=== PATIENT | female | born 2000 | race Caucasian/White ===

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

== ENCOUNTER 2022-04-19 17:07 | Emergency (ER) | payer BC ==
[2022-04-19 17:12] VITALS: RESP 18; TEMP 98.9; BMI 18.8
[2022-04-19] MEDS ORDERED: DEXAMETHASONE SOD PHOSPHATE 10 MG/1 ML VIAL IM ONE (17:22)
[2022-04-19] MEDS ORDERED: diphenhydrAMINE HCL 25 MG CAPSULE (FP) PO ONE ×3 (17:22→17:27)
[2022-04-19] MEDS ORDERED: DEXAMETHASONE 4 MG TABLET (FP) PO ONE (17:26)
[2022-04-19] MEDS ORDERED: DEXAMETHASONE 4 MG TABLET (FP) ONE (17:27)
[2022-04-19] MEDS ORDERED: FAMOTIDINE 10 MG TABLET PO ONE (18:51)
[2022-04-19] MEDS ORDERED: FAMOTIDINE 20 MG TABLET ONE (18:53)
[2022-04-19 19:01] VITALS: BP 105/70; PULSE 90
== END 2022-04-19 19:59 | disposition home or self-care (01) ==
LOC: FER 17:07
PROC: 3E023NZ Introduction of Analgesics, Hypnotics, Sedatives into Muscle, Percutaneous Approach (ICD-10-PCS; principal; 2022-04-19)
DX: T78.40XA Allergy, unspecified, initial encounter (principal)
CPT/HCPCS: 99283-25

== ENCOUNTER 2022-09-10 20:09 | Emergency (ER) | payer BC ==
[2022-09-10 20:17] VITALS: BP 133/89; RESP 16; TEMP 98.8; BMI 19.1
[2022-09-10] MEDS ORDERED: methylPREDNISolone NA SUCC 125 MG/2 ML VIAL IVPB ONE (20:27)
[2022-09-10] MEDS ORDERED: methylPREDNISolone NA SUCC 125 MG/2 ML VIAL ONE (20:30)
[2022-09-10 23:49] VITALS: PULSE 93
== END 2022-09-10 23:52 | disposition home or self-care (01) ==
LOC: FER 20:09
PROC: 3E033GC Introduction of Other Therapeutic Substance into Peripheral Vein, Percutaneous Approach (ICD-10-PCS; principal; 2022-09-10)
PROC: 3E033GC Introduction of Other Therapeutic Substance into Peripheral Vein, Percutaneous Approach (ICD-10-PCS; 2022-09-10)
DX: R07.89 Other chest pain (principal); L29.9 Pruritus, unspecified; H02.841 Edema of right upper eyelid; T78.40XA Allergy, unspecified, initial encounter
CPT/HCPCS: 99284-25